=== PATIENT | female | born 1980 | race Caucasian/White ===

== ENCOUNTER 2020-12-12 08:40 | Outpatient (CLI) | payer OTHER, SELFPAY ==
[2020-12-12 09:21] VITALS: BP 98/67; PULSE 65; RESP 18; TEMP 36.6; O2SAT 100
--- NOTE | 2020-12-12 09:49 | PC.NURSE ---
per conversation with Dr Cheung procedure was cancelled due to improvement in her pain and current symptoms at this time.
== END 2020-12-12 09:50 | disposition home or self-care (01) ==
LOC: RAD 08:42
PROVIDERS: PCP Physician Assistant Medical; Referring Provider Physical Medicine & Rehabilitation; Visit Provider Physical Medicine & Rehabilitation
DX: M50.223 Other cervical disc displacement at C6-C7 level (principal); Z53.9 Procedure and treatment not carried out, unspecified reason
CPT/HCPCS: J1100; J2250; J3010

== ENCOUNTER 2023-08-09 08:47 | Day surgery (SDC) | payer OTHER, SELFPAY ==
[2023-08-06 13:12] VITALS: BMI 26.6
[2023-08-09] VITALS (8 sets, daily range): BP systolic 92–106; BP diastolic 47–69; PULSE 51–65; RESP 11–18; TEMP 36.6–37.3; O2SAT 95–100; BMI 26.6
--- NOTE | 2023-08-09 | PATH_ITS ---
[facility] Accession Number: [id number] No. of containers..01 Tissue . 01 Material submitted: . uterus - UTERUS AND BILATERAL FALLOPIAN TUBES . 01 Diagnosis: UTERUS AND BILATERAL FALLOPIAN TUBES; HYSTERECTOMY AND BILATERAL SALPINGECTOMY: Fragments of uterine tissue with combined weight: 133 grams. Secretory endometrium without significant cytologic atypia, hyperplasia or malignancy. Focus of possible adenomyosis, in a branch sales and service representative section. Intramural leiomyomas, up to 3.4 cm in greatest diameter, without significant cytologic atypia, increased mitotic activity, necrosis or malignancy. Benign, bilateral fallopian tubes and paratubal cysts. . V 08/12/2023 1532 Local . 01 Electronically signed: . Noni Gonzalez MD, Pathologist NPI- [id number] . 01 Gross description: . The specimen is received in formalin, labeled with the patient's name, , and uterus and bilateral fallopian tubes, and consists of a fragmented uterus (133 grams, 12.6 x 9.1 x 3.7 cm in aggregate), attached fallopian tube (5.1 x 0.7 cm), detached fallopian tube (5.0 x 0.8 cm), and no cervix or additional adnexa. The serosa is moreau and smooth with no evidence of hemorrhage or adhesion identified. The endometrium is moreau and velvety, averaging 0.1 cm thick. The myometrium is moreau and trabecular with multiple well-circumscribed white whorled nodules measuring up to 3.4 cm in greatest dimension with no hemorrhage or necrosis identified. . The attached fallopian tube has moreau, smooth serosa with multiple cystic structures measuring up to 0.5 cm in greatest dimension filled with clear serous fluid. Sectioning reveals an unremarkable stellate lumen. The detached fallopian tube has violaceous smooth serosa with multiple cystic structures measuring up to 0.6 cm in greatest dimension filled with moreau serous fluid. Sectioning reveals an unremarkable stellate lumen. . Home Care Aide sections are submitted as follows: A1: Endometrium. A2-A3: Serosa. A4-A5: Nodules. A6; Attached fallopian tube to include one-half of bisected fimbriae and cross sections. A7: Detached fallopian tube to include one-half of bisected fimbriae and cross sections. ([id number]) /MRV 08/11/2023 [facility]1 Local . 01 Pathologist provided ICD-10: D25.9 . 01 CPT . 040677 Specimen Comment: A courtesy copy of this report has been sent to [phone] Performed at: 01 [facility] [address] [place] [address], [place], [place] [id number] MD Vinh Butler MD Phone: [phone]
[2023-08-09] MEDS: LACTATED RINGERS 1,000 ML 42 ML IV (09:39)
[2023-08-09] MEDS: ACETAMINOPHEN 325 MG TABLET 975 MG PO (09:40)
[2023-08-09] MEDS: SCOPOLAMINE 1 PATCH TOP (09:41)
--- NOTE | 2023-08-09 10:21 | PM.PREOP ---
Pre-operative Note Interval Note History & Physical reviewed/Exam performed by Physician: Yes Changes to H&P: No H&P completed within 30 days and has changed as indicated here:: 07/20/23
[2023-08-09] MEDS: CEFAZOLIN 2 GM/100 ML PREMIX 100 ML IV (10:43)
--- NOTE | 2023-08-09 11:13 | SUR.OPER ---
Lithotomy on padded OR bed. Kendrick Pad Positioner under torso. Head on pillow, arms padded and tucked at sides. Legs secured in padded yellow fins stirrups.
[2023-08-09] MEDS: BUPIVACAINE 0.5% (PF) 30 ML, EPINEPHrine 0.15 MG INJ (11:20)
[2023-08-09] MEDS: ROPIVACAINE 0.2% PF 2 MG/ML 10ML AMP 20 ML INJ (11:21)
--- NOTE | 2023-08-09 12:00 | P.OP_ITS ---
Operative Date/Time/Diagnoses Date of procedure: 08/09/23 Time of procedure: 12:00 Pre-op diagnosis: Abnormal uterine bleeding Fibroid uterus History of endometriosis Post-op diagnosis: same Procedure & Clinicians Procedure: Procedures Operation Date: 08/09/23 10:15 Actual Procedure Side Surgeon p Laparoscopic Supracervical Hysterectomy with bilateral salpingectomy Ángela Black MD Indications: 42-year-old 3 para 1 with history of endometriosis, now with abnormal uterine bleeding and a fibroid uterus. Surgeon: Ángela Black Bonding Machine Tender: Vianney Quinonez Anesthesia Type: General and Local Operative Notes Findings: 10 week size fibroid uterus Normal tubes and ovaries Normal liver and gallbladder Normal appendix 1 spot of endometriosis at the bladder uterine junction on the right side Closure Type: primary Specimen(s): left tube, right tube and uterus Applied: catheter (Removed at the end of the case) Estimated blood loss (mL): 25 Blood products transfused: none Procedure in detail: The patient was taken to the operating room where she was placed in the dorsal supine position. After adequate general endotracheal anesthesia was achieved, she was placed in the dorsal lithotomy position, and prepped and draped in the usual sterile fashion. A timeout was performed. A bivalve speculum was placed into the vagina and the anterior lip of the cervix grasped with a single-tooth tenaculum. The cervical os was sequentially dilated until the ZUMI uterine manipulator could pass easily into the endometrial cavity. The single-tooth tenaculum was removed from the anterior lip of the cervix, and the bivalve speculum was removed from the vagina. Attention was then turned to the abdomen where 6 mL of half percent Marcaine with epinephrine were injected in the um bilical fold. A 5 mm incision was made. The Verees needle was placed into the peritoneal cavity, and its placement confirmed by aspiration and drop test. The Verees needle was removed. A 5 mm trocar was placed without difficulty. 2 other incisions were made 4 cm lateral to the umbilicus after 5 mL of half percent Marcaine with epinephrine were injected. These were 5 mm incisions. Two 5 mm trocars were placed under direct visualization. The right tube was grasped with an atraumatic grasper. Using the Powerseal, the mesosalpinx was cauterized and cut all the way down to the cornua of the uterus. The cornua of the uterus was then grasped with an atraumatic grasper. The utero-ovarian ligaments were cauterized and cut. The round ligament and broad ligament was cauterized and cut with the Powerseal. Hemostasis was achieved. All of this was repeated on the left side. The remainder of the bladder flap was created using the Powerseal, and the bladder taken down off the lower uterine segment and cervix. Using the Linaloop, the cervix was amputated from the uterus 2 cm above the uterosacral ligaments, after the ZUMI uterine manipulator was removed from the uterus. There was a small amount of bleeding noted from the posterior edge of the cervix, and this was cauterized for hemostasis. The endocervical canal was cauterized with the spatula cautery. A sponge stick was placed into the vagina. 6 mL of half percent Marcaine with epinephrine were injected above the pubic symphysis. A 12 mm trocar was placed. An Endobag was placed through the suprapubic trocar and the uterus and tubes were placed into the Endobag. The trocar was removed. The edges of the bag were brought up through the incisions. The uterus was grasped with a Shannon. The Grupo was placed into the endobag. The uterus was hand morcellated in approximately 10 pieces. The Endobag was removed from the peritoneal cavity. The fascia was closed with 0-vicryl in a running fashion. The abdomen was reinsufflated. The pelvis was copiously irrigated with warm normal saline. No bleeding was noted.20cc of 0.2% Rupivicaine was placed over the pedicles. The instruments were removed from the abdomen. The CO2 was allowed to escape. All of the incisions were closed with 4-0 Monocryl in a subcuticular fashion. The moistened sponge stick was removed from the vagina. Sponge, lap, and instrument counts were correct x-2. The patient tolerated the procedure well, was taken to PACU in stable condition. Complications: none Post-operative Condition: stable Disposition: PACU Plan for aftercare: Home after recovery
[2023-08-09] MEDS: OXYCODONE IR 5 MG TABLET PO ×2 (12:53→13:35)
== END 2023-08-09 14:17 | disposition home or self-care (01) ==
LOC: OR 08:49 → AC 08:49
PROVIDERS: PCP Specialist; Referring Provider Obstetrics & Gynecology; Visit Provider Obstetrics & Gynecology
PROC: 0UT94ZL Resection of Uterus, Supracervical, Percutaneous Endoscopic Approach (ICD-10-PCS; CPT 58542; principal; 2023-08-09 10:15)
DX: N80.9 Endometriosis, unspecified (principal); N93.9 Abnormal uterine and vaginal bleeding, unspecified; D25.1 Intramural leiomyoma of uterus; N83.8 Other noninflammatory disorders of ovary, fallopian tube and broad ligament
CPT/HCPCS: 58542; J0171; J0690; J1100; J1885; J2405; J2704; J2795; J3010